=== PATIENT | female | born 1990 | race Caucasian/White ===

== ENCOUNTER 2021-03-22 14:04 | Emergency (ER) | payer OTHER ==
[~2021-03-22] VITALS: Ht 160 cm; Wt 43.1 kg
[2021-03-22] MEDS ORDERED: IV NS 0.9% 1,000 ML IV ONE (15:00)
[2021-03-22] MEDS ORDERED: ONDANSETRON HCL/PF 4 MG/2 ML VIAL IV ONE (15:00)
[2021-03-22] MEDS ORDERED: ONDANSETRON HCL/PF 4 MG/2 ML VIAL ONE (15:06)
--- NOTE | 2021-03-22 15:19 | NUR ---
BIBS WITH BOYFRIED TO ER BED 16. AAOX4. NOT IN RESP DISTRESS. CAME IN FOR NAUSEA AND EPISODE OF VOMMITING SINCE LAST NIGHT AFTER DRINKING. PER PT, SHE CANT KEEP ANY WATER AND FOOD DOWN. WAS AT THE BEDSIDE FOR EVAL. ORDERS RECEIVED, NOTED AND CARRIED OUT. IV LINE ESTABLSIHED ON THE R AC 20G, BLOOD DRAWN AND SENT TO LAB. PT IS ALSO MEDICATED ORDERED
[2021-03-22 15:24] LABS: BASOPHILS % (AUTO) 0.4 % (0.0-2.0); HEMATOCRIT 38 % (33-45); HEMOGLOBIN 11.5 g/dL (11.5-14.8); LYMPHOCYTES # (AUTO) 0.7 K/uL (0.8-4.8); LYMPHOCYTES % (AUTO) 9.2 % (20.0-44.0); MEAN CORPUSCULAR HGB CONC 31 g/dl (31.0-36.0); MEAN CORPUSCULAR VOLUME 76 fL (82-100); MONOCYTES # (AUTO) 0.5 K/uL (0.1-1.30); MONOCYTES % (AUTO) 6.8 % (2.0-12.0); NEUTROPHILS # (AUTO) 6.7 K/uL (1.8-8.9); NEUTROPHILS % (AUTO) 83.6 % (43.0-81.0); PLATELET COUNT (AUTO) 284 K/uL (150-450); RED BLOOD CELL COUNT(AUTO) 4.93 MIL/uL (4.0-5.2)
[2021-03-22 15:28] LABS: CALCIUM, SERUM 8.4 mg/dL (8.5-10.1); CARBON DIOXIDE 23 mmol/L (21-32); CHLORIDE 107 mmol/L (98-107); CREATININE 0.6 mg/dL (0.6-1.3); GLUCOSE 84 mg/dL (74-106); POTASSIUM 3.4 mmol/L (3.5-5.1); SODIUM SERUM 144 mmol/L (136-145); UREA NITROGEN, BLOOD 12 mg/dL (7-18)
[2021-03-22 15:34] LABS: ALANINE AMINOTRANSFERASE 24 U/L (12-78); ALBUMIN 4.6 g/dL (3.4-5.0); ALCOHOL, BLOOD < 3 mg/dL (0-0); ALKALINE PHOSPHATASE 65 U/L (46-116); ASPARTATE AMINOTRANSFERASE 19 U/L (15-37); BILIRUBIN,TOTAL 0.4 mg/dL (0.2-1.0); LIPASE 89 U/L (73-393)
--- NOTE | 2021-03-22 16:25 | NUR ---
PO CHALLENGE WAS TOLERATED WELL BY THE PATIENT. MADE AWARE.
--- NOTE | 2021-03-22 16:26 | NUR ---
ORDERED ANOTHER LITER OF NS. NOTED AND CARRIED OUT.
[2021-03-22] MEDS ORDERED: IV NS 0.9% 500 ML BAG IV ONE (16:30)
[2021-03-22] MEDS ORDERED: ONDA4TAB5 PO (17:54)
[2021-03-22 18:01] VITALS: BP 126/86
--- NOTE | 2021-03-22 18:01 | NUR ---
Patient discharged to home in stable condition. Written and verbal after care instructions given. Patient verbalizes understanding of instruction.IV removed. Catheter intact and site benign. Pressure and 4x4 applied to site. No bleeding noted. Pt ambulatory with a steady gait
== END 2021-03-22 18:01 | disposition home or self-care (01) ==
LOC: ER 14:10
DX: F10.239 Alcohol dependence with withdrawal, unspecified (principal); R11.2 Nausea with vomiting, unspecified; E87.6 Hypokalemia; M79.7 Fibromyalgia; Z98.890 Other specified postprocedural states; Y90.0 Blood alcohol level of less than 20 mg/100 ml
CPT/HCPCS: 36415; 80053; 80320; 83690; 85025; 96361; 96374; 99283; J2405; J7030 ×2; G0480